=== PATIENT | female | born 1955 | race Caucasian/White ===

== ENCOUNTER → 2017-02-14 | Outpatient (CLI) | payer OTHER | LOC: FCPNEURO 23:25 | PROVIDERS: ATTEND Psychiatry & Neurology Sleep Medicine | DX: G47.33 Obstructive sleep apnea (adult) (pediatric) (principal) ==

== ENCOUNTER 2018-07-30 06:15 | Day surgery (SDC) | payer OTHER ==
[2018-07-30] MEDS ORDERED: NS 1,000 ML IV ONE (06:23)
[2018-07-30] MEDS ORDERED: DIAZEPAM 5 MG TAB PO ONE (06:23)
[2018-07-30] MEDS ORDERED: diphenhydrAMINE 25 MG CAP PO ONE ×2 (06:23→07:07)
[2018-07-30] MEDS ORDERED: ASPIRIN EC 325 MG TAB PO ONE ×2 (06:23→07:07)
[2018-07-30] MEDS ORDERED: FAMOTIDINE 20 MG TAB PO ONE (06:23)
[2018-07-30] MEDS ORDERED: DIAZEPAM 5 MG TAB ONE (07:07)
[2018-07-30] MEDS ORDERED: FAMOTIDINE 20 MG TAB ONE (07:07)
[2018-07-30 07:22] LABS: INR 0.98 (0.83-1.16); PROTIME(PATIENT) 13.2 SEC (12.0-15.0)
[2018-07-30 07:24] LABS: PLATELET COUNT 277 10^3/uL (150-400)
--- NOTE | 2018-07-30 08:06 | PDHPUP ---
History & Physical Update H&P update statement: This history and physical update is based on an assessment of the patient which was completed after admission or registration (within 24 hours), but prior to the surgery/procedure. H&P update: H&P reviewed & patient examined, no change in patient's condition since H&P completed
--- NOTE | 2018-07-30 08:06 | PDPROPOC ---
Sedation Plan of Care Sedation Plan of Care: vital signs stable, mental status noted, patient educated of risks, benefits, alternatives, patient can tolerate sedation ASA Classification: ASA 1 Planned drugs: fentanyl, midazolam Mallampati Score: Class 1 Mallampati Reference Image: Patient passed 3-3-2 rule?: Yes
[2018-07-30] MEDS ORDERED: LIDOCAINE 1% 300 MG/30 ML SDV ONE (08:19)
[2018-07-30] MEDS ORDERED: fentaNYL 100 MCG/2 ML INJ ONE (08:19)
[2018-07-30] MEDS ORDERED: MIDAZOLAM 2 MG/2 ML VIAL ONE (08:19)
[2018-07-30] MEDS ORDERED: VERAPAMIL 5 MG/2 ML VIAL ONE (08:20)
[2018-07-30] MEDS ORDERED: HEPARIN 10,000 UNIT/10 ML MDV (1,000 UNIT/ML) ONE (08:20)
[2018-07-30] MEDS ORDERED: IOPAMIDOL (ISOVUE-370) 150 ML BTL IV ONE (08:20)
--- NOTE | 2018-07-30 11:19 | CPEKG ---
Test Reason : OPEN Blood Pressure : / mmHG Vent. Rate : 067 BPM Atrial Rate : 067 BPM P-R Int : 202 ms QRS Dur : 111 ms QT Int : 404 ms P-R-T Axes : 021 009 028 degrees QTc Int : 427 ms Sinus rhythm Lateral infarct, age indeterminate Non-specific ST depression lateral leads. Confirmed by Bebeto Whitney ([id number]) on 07/30/2018 11:18:30 AM Referred By: Confirmed By:Bebeto Whitney
--- NOTE | 2018-07-31 16:49 | PDDXCAT ---
Diagnostic Cath Note - . Date: 07/31/18 Organization Development Consultant: Rajat Indication: other (Preoperative cardiovascular testing indicating intermediate risk findings.) - Procedure Access: right wrist Procedure: left heart catheterization, coronary angiography, left ventriculogram - Materials Left Heart Cath size: 5F Left Heart Cath materials: JL3.5, JR4.0, pigtail - Findings-Left Heart Catheterization LM: Moderate caliber, short vessel with appropriate bifurcation into left anterior descending and circumflex distributions. Angiographically free of disease. LAD: Moderate caliber, tortuous transapical vessel with multiple small surgically insignificant diagonal branches. Angiographically free of disease. LCX: Moderate caliber in the proximal segment. Becoming diminutive after the origin of a large multibranching obtuse marginal. Angiographically free of disease. RCA: Dominant vessel. Angiographically free of disease. LVEF: 65-70%. Normal wall motion. No significant mitral regurgitation. Wall motion: Normal. Complications: None. Estimated blood loss: <50ml Closure method: TR Band Assessment: Angiographically normal epicardial coronary arteries. Normal left ventricular systolic function without identified valvular heart disease. Likely false-positive stress myocardial perfusion imaging study due to breast attenuation artifact. Intervention: None.
== END 2018-07-30 12:10 | disposition home or self-care (01) ==
LOC: FCATH 06:15
PROVIDERS: ATTEND Internal Medicine Cardiovascular Disease
DX: R93.1 Abnormal findings on diagnostic imaging of heart and coronary circulation (principal); I49.3 Ventricular premature depolarization; I10 Essential (primary) hypertension; E66.01 Morbid (severe) obesity due to excess calories; Z68.42 Body mass index [BMI] 45.0-49.9, adult; G47.33 Obstructive sleep apnea (adult) (pediatric); Z86.711 Personal history of pulmonary embolism; Z79.01 Long term (current) use of anticoagulants; Z85.828 Personal history of other malignant neoplasm of skin
CPT/HCPCS: J1644; J2250; J3010; Q9967